=== PATIENT | male | born 1940 | race Caucasian/White ===

== ENCOUNTER 2020-04-27 09:40 | Day surgery (SDC) | payer OTHER ==
[~2020-04-27] VITALS: Ht 172.7 cm; Wt 96.2 kg
[~2020-04-27 09:40] MED LIST: ACETAMINOPHEN 325 MG TAB PO PRN; ATEN50TA2 PO; CYCLOPENTOLATE 2% OPHTH SOLN 2ML BTL OD ONE; LIDOCAINE 3.5 % 1ML OPHTH TOPICAL GEL OU ONE; OFLOXACIN 0.3 % (OCUFLOX) OPTH SOL 5ML OD ONE; OMEP10CASR PO; PHENYLEPHRINE 2.5% OPHTH SOL 2ML OD ONE; PHENYLEPHRINE HCL 10 % OPHTH. SOL 5ML OD PRN; PRESCAP PO; PROPARACAINE 0.5% OPHTH SOL 15ML OD PRN; SYNT175T2 PO; TROPICAMIDE 1% OPHTH SOLN 2ML OD ONE; VITA-157 PO; VITA50005 PO
[2020-04-27] MEDS ORDERED: LIDOCAINE 1% SDV 5ML VIAL As Ordered ONE (10:44)
[2020-04-27] MEDS ORDERED: POVIDONE-IODINE 5% OPHTH PREP SOL 30ML As Ordered ONE (10:44)
[2020-04-27] MEDS ORDERED: CEFUROXIME 1MG/0.1ML INTRACAMERAL INJ As Ordered ONE (10:45)
[2020-04-27] MEDS ORDERED: BALANCED SALT IRRIGATION SOLUTION 500ML BAG (FOR OR EYE MACHINE) As Ordered ONE (10:45)
[2020-04-27] MEDS ORDERED: HEALON DUET PRO(HEALON 10MG/ML 0.55ML & HEALON ENDOCOAT 30MG/ML 0.85ML) As Ordered ONE (10:45)
[2020-04-27] MEDS ORDERED: fentaNYL 100 MCG/2 ML INJECTION (J3010) As Ordered ONE (11:44)
[2020-04-27] MEDS ORDERED: MIDAZOLAM INJ 2MG/2ML VIAL (J2250 PER 1MG) As Ordered ONE (11:44)
[2020-04-27] MEDS ORDERED: KETOROLAC 0.5% OPHTH SOLN OD ONE (12:30)
[2020-04-27] MEDS ORDERED: AcetaZOLAMIDE 500 MG ER CAP PO ONE (12:30)
[2020-04-27] MEDS ORDERED: TRIMETHOBENZAMIDE 300 MG CAP PO PRN (12:30)
[2020-04-27 13:05] VITALS: BP 158/77
== END 2020-04-27 13:10 | disposition home or self-care (01) ==
LOC: M SDC 09:40
PROVIDERS: ATTEND Ophthalmology
DX: H25.11 Age-related nuclear cataract, right eye (principal); I10 Essential (primary) hypertension; E03.9 Hypothyroidism, unspecified; R00.2 Palpitations; Z79.899 Other long term (current) drug therapy; K21.9 Gastro-esophageal reflux disease without esophagitis
CPT/HCPCS: 66984; 92015; J2250; J3010